=== PATIENT | female | born 1985 | race Caucasian/White ===

== ENCOUNTER 2017-10-11 11:50 | Emergency (ER) | payer OTHER ==
[~2017-10-11] VITALS: Ht 157.5 cm; Wt 59.0 kg
--- NOTE | ~2017-10-11 | EKG ---
[address] [address] ELECTROCARDIOGRAM REPORT Name: KURT DESAI Room #: [facility]#: [id number] Admission: 10/11/17 Attend Phys: Discharge: 10/11/17 Date of : 85 Report #: [id number] THIS REPORT FOR: //name// [facility] ED Test Date: 2017-10-11 Test Time: 16:11:03 Pat Name: KURT DESAI Department: Room: Gender: F [email or web address] : 1985 Requested By: Rigo Underwood Order Number: [id number] MD: Matheus Chong Measurements Intervals [place] Rate: 97 P: 52 PA: 155 QRS: 43 QRSD: 87 T: 28 QT: 346 QTc: 440 Interpretive Statements Sinus rhythm Compared to ECG 05/07/2010 16:23:56 Electronically Signed On 10-12-2017 12:08:20 CDT by Matheus Chong [email or web address] <ELECTRONICALLY SIGNED> By: Matheus Chong MD 10/12/17 1208 1611 1611 Matheus Chong MD /[email or web address]
[~2017-10-11 11:50] MED LIST: BACTRIM DS TAB1 EACH PO; BENTYL10 MG PO; CIPROFLOXACIN500 M1 PO; DIFLUCAN150 MG PO; METROGEL-VAGINA70 GM VG; MIRALAX255 GM PO; MULTIVITAMINS; NORCO 5-325 TA1 EACH PO; PERCOCET 5-3251 EACH PO; PHENERGAN 25 MG25 M1 PO
[2017-10-11] MEDS ORDERED: XANAX 0.25 MG0.25 MG (12:03)
[2017-10-11] MEDS ORDERED: PRENATAL PO (12:03)
[2017-10-11 12:04] LABS: URINE BILIRUBIN NEGATIVE (Negative); URINE BLOOD NEGATIVE (Negative); URINE CLARITY CLEAR; URINE COLOR YELLOW; URINE GLUCOSE-RANDOM* NEGATIVE (Negative); URINE KETONES NEGATIVE (Negative); URINE LEUKOCYTES 1+ (Negative); URINE NITRITE NEGATIVE (Negative); URINE PROTEIN (DIPSTICK) NEGATIVE (Negative)
[2017-10-11 12:12] LABS: AMP/METHAMP POSITIVE (Negative); BARBITURATES Negative (Negative); BENZODIAZEPINES POSITIVE (Negative); COCAINE Negative (Negative); METHADONE Negative (Negative); OPIATES POSITIVE (Negative); PCP Negative (Negative)
[2017-10-11 12:31] LABS: ABSOLUTE NEUTROPHILS 14.6 thou/uL (1.4-8.2); BASOPHILS 0.2 % (0.0-2.0); EOSINOPHILS 0.6 % (0.0-3.0); HEMATOCRIT 40.1 % (37.0-47.0); HEMOGLOBIN 13.9 gm/dL (12.0-15.0); LYMPHOCYTES 14.1 % (24.0-44.0); MCH 29.9 pg (26.0-34.0); MCHC 34.6 g/dL (28.0-37.0); MCV 86.4 fL (80.0-100.0); MONOCYTES 5.9 % (1.0-8.0); PLATELET COUNT 247 thou/uL (150-400); POLYS 79.2 % (36.0-66.0); RBC 4.64 mil/uL (4.20-5.00); RDW 12.9 % (10.5-14.5); WBC 18.5 thou/uL (4.0-11.0)
[2017-10-11 12:36] LABS: BACTERIA 1-9 Few /HPF (None Seen); CASTS None Seen /LPF (None Seen); CRYSTALS None Seen /LPF (None Seen); SQUAMOUS >10 Many /LPF (0-3); URINE RBC None Seen /HPF (0-2); URINE WBC 0-5 Rare /HPF (0-5)
[2017-10-11 12:40] LABS: ANION GAP 7 mmol/L (7-16); BUN 10 mg/dL (7-18); CHLORIDE 103 mmol/L (98-107); CO2 25 mmol/L (21-32); CREATININE 0.8 mg/dL (0.6-1.0); POTASSIUM 3.8 mmol/L (3.5-5.1); SODIUM 135 mmol/L (136-145)
[2017-10-11 12:41] LABS: CALCIUM 9.3 mg/dL (8.5-10.1); GLUCOSE 94 mg/dL (74-106); SALICYLATE < 2.8 mg/dL (2.8-20.0)
[2017-10-11 13:22] LABS: DIRECT BILIRUBIN < 0.1 mg/dL (<0.1-0.3); LIPASE 121 U/L (73-393); SGOT 21 U/L (15-37); SGPT 30 U/L (30-65); TOTAL BILIRUBIN 0.2 mg/dL (<0.1-1.0); TOTAL PROTEIN 7.5 g/dL (6.4-8.2)
[2017-10-11 17:55] VITALS: BP 134/89
== END 2017-10-11 17:57 | disposition short-term general hospital (02) ==
LOC: ER 11:50
PROVIDERS: Nurse Practitioner
DX: O26.891 Other specified pregnancy related conditions, first trimester (principal); Z3A.13 13 weeks gestation of pregnancy; F11.23 Opioid dependence with withdrawal; R00.0 Tachycardia, unspecified